=== PATIENT | male | born 1975 | race African-American/Black ===

== ENCOUNTER 2016-06-29 11:42 | Outpatient (RCR) | payer OTHER | END 2016-09-27 | disposition home or self-care (01) | LOC: LAB 11:42 | PROVIDERS: ATTEND Family Medicine | DX: Z09 Encounter for follow-up examination after completed treatment for conditions other than malignant neoplasm (principal); Z98.52 Vasectomy status | CPT/HCPCS: 89321 ==

== ENCOUNTER 2021-02-24 17:56 | Emergency (ER) | payer BC, OTHER ==
[~2021-02-24] VITALS: Ht 178 cm; Wt 99.0 kg
--- NOTE | 2021-02-24 18:06 | ED Upper Extremity ---
General Stated Complaint: R THUMB LAC Source: patient History of Present Illness Date Seen by Provider: Feb 24, 2021 Time Seen by Provider: 18:00 Initial Comments PT ARRIVES VIA POV FROM HOME C/O LACERATION TO RIGHT THUMB OCCURRED JUST PRIOR TO ARRIVAL--SLICING ONIONS ON A MANDOLIN-TYPE SLICER. NO OTHER INJURIES FROM THE INCIDENT NO PARESTHESIAS OR MOTOR DEFICITS PT IS RIGHT HANDED LAST TETANUS VACCINATION IS UNKNOWN PCP: DR. LEON Allergies and Home Medications Allergies Coded Allergies: No Known Drug Allergies (Unverified , 02/24/21) Home Medications Cephalexin 500 Mg Tablet, 500 MG PO QID Prescribed by: ANTONIO GRISSOM on 02/24/21 7513 Patient Home Medication List Home Medication List Reviewed: Yes Review of Systems Constitutional: no symptoms reported Musculoskeletal: see HPI Skin: see HPI Psychiatric/Neurological: No Symptoms Reported Past Gemesac-Eoehuf-Ydbbxl Hx Past Med/Social Hx: Reviewed and Corrections made Immunizations Up To Date Tetanus Booster (TDap): Unknown Past Medical History Surgeries: No Respiratory: No Cardiac: No Neurological: No Genitourinary: No Gastrointestinal: No Musculoskeletal: No Endocrine: No HEENT: No Cancer: No Psychosocial: No Integumentary: No Blood Disorders: No Physical Exam Vital Signs Vital Signs - First Documented 02/24/21 18:08 Temp 37.0 Pulse 71 Resp 18 B/P (MAP) 141/93 (109) Pulse Ox 100 O2 Delivery Room Air Capillary Refill : Height, Weight, BMI Height: '" Weight: lbs. oz. kg; BMI Method: General Appearance: WD/WN, no apparent distress Hand: Right (THUMB WITH 4 CM C-SHAPED FLAP LACERATION TO PAD OF THUMB. MOTOR/SENSORY/VASCULAR INTACT) Neurologic/Tendon: normal sensation, normal motor functions, normal tendon functions Neurologic/Psychiatric: no motor/sensory deficits, alert, normal mood/affect, oriented x 3 Procedures/Interventions Other Wound Location RIGHT THUMB Wound Length (cm): 4 Wound's Depth, Shape: flap, sub Q Wound Explored: clean Betadine Prep?: No (BETASEPT) Anesthesia: 1% Lidocaine Suture: Ethlion Suture Size: 4-0 Number of Sutures: 8 Layer Closure?: 1 Sterile Dressing Applied?: Yes Progress/Results/Core Measures Results/Orders My Orders Orders - ANTONIO GRISSOM DO Dipht,Pertuss(Acell),Tet Adult (Boostrix (02/24/21 18:15) Lidocaine 1% Inj 20 Ml (Xylocaine 1% Inj (02/24/21 18:15) Wound Dressing-Ed (02/24/21 18:02) Medications Given in ED Current Medications Medications Dose Ordered Sig/Omero Route Start Time Stop Time Status Last Admin Dose Admin Diphtheria/ Tetanus/Acell Pertussis 0.5 ml ONCE ONCE IM 02/24/21 18:15 02/24/21 18:16 DC 02/24/21 18:18 0.5 ML Lidocaine HCl 20 ml ONCE ONCE INJ 02/24/21 18:15 02/24/21 18:16 DC 02/24/21 18:19 2 ML Vital Signs/I&O 02/24/21 18:08 Temp 37.0 Pulse 71 Resp 18 B/P (MAP) 141/93 (109) Pulse Ox 100 O2 Delivery Room Air Departure Impression Primary Impression: Laceration of right thumb Additional Impression: Mhodxtivvf-hhonkxqja-uaekshu (DPT) vaccination administered at current visit Disposition: 01 HOME, SELF-CARE Condition: Stable Departure-Patient Inst. Referrals: OWEN LEON DO (PCP/Family) Primary Care Physician Patient Instructions: Diphtheria and Tetanus Toxoids, and Acellular Pertussis Vaccine, Laceration Repair With Stitches (DC) Add. Discharge Instructions: TYLENOL AND MOTRIN NEEDED FOR PAIN CLEAN TWICE A DAY WITH SOAP AND WATER ON A Q-TIP, OTHERWISE KEEP CLEAN AND DRY SUTURES OUT IN 10 DAYS--RETURN TO ER FOR REMOVAL Scripts Cephalexin (Cephalexin) 500 Mg Tablet 500 MG PO QID, #40 TAB Prov: ANTONIO GRISSOM DO 02/24/21 ANTONIO GRISSOM DO Feb 24, 2021 18:06
[2021-02-24 18:08] VITALS: BP 141/93
[2021-02-24] MEDS ORDERED: LIDOCAINE 1% INJ 20 ML 20 ML VIAL INJ ONE (18:15)
[2021-02-24] MEDS ORDERED: TETANUS,DIPTH,PERTUSS P/F (BOOSTRIX) 0.5 ML VIAL IM ONE (18:15)
[2021-02-24] MEDS ORDERED: CEPH500T PO (18:29)
== END 2021-02-24 18:44 | disposition home or self-care (01) ==
LOC: EDUNIT# 17:56 → ER 17:58
DX: S61.011A Laceration without foreign body of right thumb without damage to nail, initial encounter (principal); Z23 Encounter for immunization; W27.4XXA Contact with kitchen utensil, initial encounter
CPT/HCPCS: 12042; 90715

== ENCOUNTER 2021-03-06 08:07 | Emergency (ER) | payer BC ==
[~2021-03-06] VITALS: Ht 182 cm; Wt 90.9 kg
[~2021-03-06 08:07] MED LIST: CEPH500T PO
[2021-03-06 08:15] VITALS: BP 136/85
== END 2021-03-06 08:31 | disposition home or self-care (01) ==
LOC: EDUNIT# 08:07 → ER 08:08
DX: Z48.02 Encounter for removal of sutures (principal)
CPT/HCPCS: 99281